=== PATIENT | male | born 1995 | race Caucasian/White ===

== ENCOUNTER 2017-12-19 20:30 | Emergency (ER) | payer SELFPAY ==
[~2017-12-19] VITALS: Ht 188 cm; Wt 80.9 kg
[2017-12-19 20:30] VITALS: TEMP 98.1
[2017-12-19 21:29] LABS: BASO # 0.1 (0.0-0.2); EOS # 0.2 (0.0-0.7); EOS % 2.4 % (0-4.0); GRAN % 57.2 % (42.2-75.2); HEMATOCRIT 44.2 % (42.0-52.0); HEMOGLOBIN 15.7 g/dl (13.5-18.0); LYMPH # 2.5 (1.2-3.4); LYMPH % 28.4 % (20.0-51.0); MEAN CELL VOLUME 90 fl (80.0-100.0); MEAN CORPUSCULAR HEMOGLOBIN 32 pg (27.0-31.0); MEAN CORPUSCULAR HGB CONC 36 g/dl (33.0-37.0); MEAN PLATELET VOLUME 8.8 fl (7.4-10.4); MONO % 10.9 % (1.7-9.3); PLATELET COUNT 215 K/mm3 (130-400); RED BLOOD COUNT 4.94 M/mm3 (4.20-5.60); REDCELL DISTRIBUTION WIDTH-CV 11.9 % (11.5-14.5)
[2017-12-19 21:42] LABS: ALBUMIN 4.4 gm/dL (3.5-5.0); BILIRUBIN,TOTAL 0.8 mg/dL (0.0-1.0); C-REACTIVE PROTEIN 1.2 mg/dL (0.0-0.9); CALCIUM 9.5 mg/dL (8.4-10.2); CREATININE, serum 0.93 mg/dL (0.66-1.25); POTASSIUM 4.4 mmol/L (3.4-5.0)
[2017-12-19 22:10] VITALS: BP 132/74; PULSE 62
== END 2017-12-19 22:10 | disposition home or self-care (01) ==
LOC: COL.ER 20:30
PROVIDERS: Physician Assistant
DX: R06.00 Dyspnea, unspecified (principal); F17.210 Nicotine dependence, cigarettes, uncomplicated

== ENCOUNTER 2018-07-16 10:14 | Emergency (ER) | payer SELFPAY ==
[~2018-07-16] VITALS: Ht 188 cm; Wt 85.0 kg
[2018-07-16 10:20] VITALS: BP 128/70; TEMP 98.2
[2018-07-16] MEDS ORDERED: NORCO 325 MG-51 TAB PO (10:41)
[2018-07-16] MEDS ORDERED: CLEOCIN HCL300 MG PO (10:41)
[2018-07-16 11:43] VITALS: PULSE 76
== END 2018-07-16 11:44 | disposition home or self-care (01) ==
LOC: COL.ER 10:14
DX: K02.9 Dental caries, unspecified (principal)

== ENCOUNTER 2018-08-02 10:12 | Emergency (ER) | payer SELFPAY ==
[~2018-08-02] VITALS: Ht 188 cm; Wt 84.5 kg
[~2018-08-02 10:12] MED LIST: CLEOCIN HCL300 MG PO; NORCO 325 MG-51 TAB PO
[2018-08-02 10:20] VITALS: BP 141/82; TEMP 97.8
[2018-08-02 11:20] LABS: BASO # 0.1 (0.0-0.2); EOS # 0.3 (0.0-0.7); EOS % 3.5 % (0-4.0); GRAN # 4.6 (1.4-6.5); GRAN % 57.8 % (42.2-75.2); HEMATOCRIT 47.3 % (42.0-52.0); HEMOGLOBIN 16.8 g/dl (13.5-18.0); LYMPH # 2.3 (1.2-3.4); LYMPH % 28.5 % (20.0-51.0); MEAN CELL VOLUME 92 fl (80.0-100.0); MEAN CORPUSCULAR HEMOGLOBIN 33 pg (27.0-31.0); MEAN CORPUSCULAR HGB CONC 36 g/dl (33.0-37.0); MEAN PLATELET VOLUME 9.1 fl (7.4-10.4); MONO # 0.7 (0.1-0.6); MONO % 8.9 % (1.7-9.3); PLATELET COUNT 256 K/mm3 (130-400); RED BLOOD COUNT 5.15 M/mm3 (4.20-5.60); REDCELL DISTRIBUTION WIDTH-CV 11.9 % (11.5-14.5)
[2018-08-02 11:23] LABS: ALANINE AMINOTRANSFERASE 18 U/L (21-72); ALBUMIN 4.7 gm/dL (3.5-5.0); ALKALINE PHOSPHATASE 59 U/L (50-136); ANION GAP 5 mmol/L (7-16); AST,SGOT 23 U/L (15-37); BLOOD UREA NITROGEN 15 mg/dL (9-20); CALCIUM 9.9 mg/dL (8.4-10.2); CARBON DIOXIDE 31 mmol/L (22-30); CHLORIDE 102 mmol/L (98-107); CREATININE, serum 0.86 mg/dL (0.66-1.25); GLUCOSE 84 mg/dL (74-106); MAGNESIUM 2.3 mg/dL (1.6-2.3); PHOSPHOROUS 3.7 mg/dL (2.5-4.5); POTASSIUM 4.7 mmol/L (3.4-5.0); SODIUM 138 mmol/L (137-145); TOTAL PROTEIN 7.8 gm/dL (6.4-8.2)
[2018-08-02 11:35] LABS: C-REACTIVE PROTEIN < 0.5 mg/dL (0.0-0.9)
[2018-08-02 11:37] LABS: PROLACTIN 18.7 ng/mL (3.7-17.9)
[2018-08-02 11:38] LABS: ERYTHROCYTE SEDIMENTATION RATE 2 mm/hr (0-15)
[2018-08-02] MEDS ORDERED: CLEOCIN HCL300 MG PO (12:25)
[2018-08-02 12:34] VITALS: PULSE 89
== END 2018-08-02 12:34 | disposition home or self-care (01) ==
LOC: COL.ER 10:12
PROVIDERS: Emergency Medicine
DX: R51 Headache (principal); R55 Syncope and collapse; F17.210 Nicotine dependence, cigarettes, uncomplicated

== ENCOUNTER 2018-11-25 00:36 | Emergency (ER) | payer SELFPAY ==
[~2018-11-25] VITALS: Ht 182.9 cm; Wt 77.3 kg
[2018-11-25] MEDS ORDERED: SEROQUEL 2525 MG/TAB PO (00:46)
[2018-11-25] MEDS ORDERED: DESYREL 50MG50 MG PO (00:47)
[2018-11-25] MEDS ORDERED: APRESOLINE 10MG10 MG PO (00:47)
[2018-11-25 01:25] LABS: COLLECTION METHOD CLEAN CATCH
[2018-11-25 01:34] LABS: PH 5 (5-8); SQUAMOUS EPITHELIAL None Seen /hpf; URINE APPEARANCE Clear; URINE BACTERIA None Seen /hpf; URINE BILIRUBIN Negative (NEGATIVE); URINE BLOOD 1+ (NEGATIVE); URINE COLOR Yellow; URINE GLUCOSE Negative (NEGATIVE); URINE KETONE Negative (NEGATIVE); URINE LEUKOCYTE ESTERASE Negative (NEGATIVE); URINE NITRATE Negative (NEGATIVE); URINE PROTEIN(semi-quant) Negative (NEGATIVE); URINE RBC 0-2 /hpf; URINE UROBILINOGEN Negative (NEGATIVE)
[2018-11-25 01:44] LABS: BASO # 0.1 (0.0-0.2); BASO % 1.1 % (0.0-2.0); EOS # 0.3 (0.0-0.7); EOS % 2.6 % (0-4.0); GRAN # 6.1 (1.4-6.5); HEMATOCRIT 42.8 % (42.0-52.0); HEMOGLOBIN 15.1 g/dl (13.5-18.0); LYMPH % 20.7 % (20.0-51.0); MEAN CELL VOLUME 92 fl (80.0-100.0); MEAN CORPUSCULAR HEMOGLOBIN 32 pg (27.0-31.0); MEAN CORPUSCULAR HGB CONC 35 g/dl (33.0-37.0); MEAN PLATELET VOLUME 8.6 fl (7.4-10.4); MONO # 1.2 (0.1-0.6); MONO % 12.3 % (1.7-9.3); PLATELET COUNT 220 K/mm3 (130-400); RED BLOOD COUNT 4.66 M/mm3 (4.20-5.60); REDCELL DISTRIBUTION WIDTH-CV 12.1 % (11.5-14.5)
[2018-11-25 01:57] LABS: TRICYCLIC ANTIDEPRESS URINE POSITIVE
[2018-11-25 02:05] LABS: ALANINE AMINOTRANSFERASE 17 U/L (21-72); ALBUMIN 4.5 gm/dL (3.5-5.0); ALKALINE PHOSPHATASE 97 U/L (50-136); ANION GAP 13 mmol/L (7-16); AST,SGOT 35 U/L (15-37); BILIRUBIN,TOTAL 0.4 mg/dL (0.0-1.0); BLOOD UREA NITROGEN 18 mg/dL (9-20); CALCIUM 9.6 mg/dL (8.4-10.2); CARBON DIOXIDE 26 mmol/L (22-30); CHLORIDE 102 mmol/L (98-107); CREATININE, serum 0.76 (0.66-1.25); GLUCOSE 160 mg/dL (74-106); POTASSIUM 3.8 mmol/L (3.4-5.0); SODIUM 141 mmol/L (137-145); TOTAL PROTEIN 7.6 gm/dL (6.4-8.2)
[2018-11-25 02:07] LABS: ACETAMINOPHEN < 10 ug/mL (10-30); ALCOHOL(ethanol),MEDICAL < 10 mg/dL; SALICYLATE < 1.0 mg/dL
[2018-11-26 15:11] VITALS: BP 145/86; PULSE 95; TEMP 98.1
== END 2018-11-26 15:13 ==
LOC: COL.ER 00:36
PROVIDERS: Emergency Medicine
DX: R45.850 Homicidal ideations (principal); F99 Mental disorder, not otherwise specified; Z88.6 Allergy status to analgesic agent; Z91.5 Personal history of self-harm

== ENCOUNTER 2019-11-02 19:44 | Emergency (ER) | payer SELFPAY ==
[~2019-11-02] VITALS: Ht 7.6 cm; Wt 81.1 kg
[~2019-11-02 19:44] MED LIST changes: +APRESOLINE 10MG10 MG PO; +DESYREL 50MG50 MG PO; +SEROQUEL 2525 MG/TAB PO
[2019-11-02 19:49] VITALS: TEMP 97
[2019-11-02 20:13] VITALS: BP 133/91; PULSE 89
== END 2019-11-02 20:13 | disposition home or self-care (01) ==
LOC: COL.ER 19:44
DX: R21 Rash and other nonspecific skin eruption (principal); F17.210 Nicotine dependence, cigarettes, uncomplicated; Z88.6 Allergy status to analgesic agent

== ENCOUNTER 2020-01-09 18:51 | Emergency (ER) | payer SELFPAY ==
[~2020-01-09] VITALS: Ht 190.5 cm; Wt 82.7 kg
[2020-01-09 19:00] VITALS: BP 135/95; TEMP 97.8
[2020-01-09 21:32] VITALS: PULSE 60
== END 2020-01-09 21:32 | disposition home or self-care (01) ==
LOC: COL.ER 18:51
DX: M54.5 Low back pain (principal); M25.60 Stiffness of unspecified joint, not elsewhere classified; F17.210 Nicotine dependence, cigarettes, uncomplicated
CPT/HCPCS: J1200; J1885; J7030

== ENCOUNTER 2020-02-24 09:03 | Outpatient (RCR) | payer SELFPAY | END 2020-03-17 14:45 | disposition home or self-care (01) | LOC: WSC 09:03 | DX: S84.90XA Injury of unspecified nerve at lower leg level, unspecified leg, initial encounter (principal); M25.60 Stiffness of unspecified joint, not elsewhere classified ==

== ENCOUNTER 2020-08-21 18:45 | Emergency (ER) | payer SELFPAY ==
[~2020-08-21] VITALS: Ht 190.5 cm; Wt 79.1 kg
[2020-08-21 20:20] LABS: CALCIUM 9.4 mg/dL (8.4-10.2); CREATININE, serum 0.73 (0.66-1.25); MAGNESIUM 2.1 mg/dL (1.6-2.3); POTASSIUM 4.2 mmol/L (3.4-5.0)
[2020-08-21 20:52] VITALS: BP 136/74; PULSE 63; TEMP 97.9
== END 2020-08-21 20:49 | disposition home or self-care (01) ==
LOC: COL.ER 18:45
PROVIDERS: Emergency Medicine
DX: R53.83 Other fatigue (principal); Z20.822 Contact with and (suspected) exposure to COVID-19; Z88.8 Allergy status to other drugs, medicaments and biological substances

== ENCOUNTER 2020-11-20 14:32 | Emergency (ER) | payer SELFPAY ==
[~2020-11-20] VITALS: Ht 190.5 cm; Wt 79.1 kg
[2020-11-20 14:38] VITALS: TEMP 98.1
[2020-11-20] MEDS ORDERED: AMOXICILLIN 8751 TAB PO (14:41)
[2020-11-20 15:16] VITALS: BP 158/76; PULSE 72
== END 2020-11-20 15:15 | disposition home or self-care (01) ==
LOC: COL.ER 14:32
DX: S51.852A Open bite of left forearm, initial encounter (principal); Z88.8 Allergy status to other drugs, medicaments and biological substances; W54.0XXA Bitten by dog, initial encounter

== ENCOUNTER 2021-04-05 10:10 | Emergency (ER) | payer SELFPAY ==
[~2021-04-05] VITALS: Ht 190.5 cm; Wt 90.0 kg
[~2021-04-05 10:10] MED LIST changes: +AMOXICILLIN 8751 TAB PO
[2021-04-05 11:22] VITALS: BP 127/79; PULSE 74; TEMP 98.3
[2021-04-05 13:02] LABS: BASO # 0.1 (0.0-0.2); EOS # 0.2 (0.0-0.7); EOS % 1.6 % (0-4.0); GRAN # 6.6 (1.4-6.5); HEMATOCRIT 44.8 % (42.0-52.0); HEMOGLOBIN 15.7 g/dl (13.5-18.0); LYMPH # 1.9 (1.2-3.4); LYMPH % 20.6 % (20.0-51.0); MEAN CELL VOLUME 91 fl (80.0-100.0); MEAN CORPUSCULAR HEMOGLOBIN 32 pg (27.0-31.0); MEAN CORPUSCULAR HGB CONC 35 g/dl (33.0-37.0); MEAN PLATELET VOLUME 9.2 fl (7.4-10.4); MONO # 0.5 (0.1-0.6); MONO % 5.5 % (1.7-9.3); PLATELET COUNT 254 K/mm3 (130-400); RED BLOOD COUNT 4.92 M/mm3 (4.20-5.60); REDCELL DISTRIBUTION WIDTH-CV 12.4 % (11.5-14.5)
[2021-04-05 13:15] LABS: ALBUMIN 4.6 gm/dL (3.5-5.0); ALKALINE PHOSPHATASE 95 U/L (50-136); ANION GAP 12 mmol/L (7-16); AST,SGOT 25 U/L (15-37); BILIRUBIN,TOTAL 0.6 mg/dL (0.0-1.0); BLOOD UREA NITROGEN 19 mg/dL (9-20); CALCIUM 8.8 mg/dL (8.4-10.2); CARBON DIOXIDE 22 mmol/L (22-30); CHLORIDE 103 mmol/L (98-107); CREATININE, serum 0.77 (0.66-1.25); GLUCOSE 127 mg/dL (74-106); POTASSIUM 4.2 mmol/L (3.4-5.0); SODIUM 137 mmol/L (137-145); TOTAL PROTEIN 7.6 gm/dL (6.4-8.2)
[2021-04-05 13:30] LABS: C-REACTIVE PROTEIN < 0.5 mg/dL (0.0-0.9)
[2021-04-05 14:00] LABS: ALANINE AMINOTRANSFERASE 25 U/L (4-49)
== END 2021-04-05 13:05 | disposition home or self-care (01) ==
LOC: COL.ER 10:10
PROVIDERS: Emergency Medicine
DX: R19.7 Diarrhea, unspecified (principal); F17.210 Nicotine dependence, cigarettes, uncomplicated; Z20.822 Contact with and (suspected) exposure to COVID-19

== ENCOUNTER 2021-06-09 19:32 | Emergency (ER) | payer OTHER ==
[~2021-06-09] VITALS: Ht 190.5 cm; Wt 91.8 kg
[2021-06-09 19:58] VITALS: TEMP 97.5
[2021-06-09] MEDS ORDERED: NAPROSYN500 MG PO (21:23)
[2021-06-09] MEDS ORDERED: PEN-VEE K500 MG PO (21:23)
[2021-06-09 21:34] VITALS: BP 128/80; PULSE 86
== END 2021-06-09 21:34 | disposition home or self-care (01) ==
LOC: COL.ER 19:32
DX: K08.89 Other specified disorders of teeth and supporting structures (principal)

== ENCOUNTER 2021-06-21 08:31 | Emergency (ER) | payer OTHER ==
[~2021-06-21] VITALS: Ht 190.5 cm; Wt 91.8 kg
[~2021-06-21 08:31] MED LIST changes: +NAPROSYN500 MG PO; +PEN-VEE K500 MG PO
[2021-06-21 09:07] LABS: BASO # 0.1 K/mm3 (0.0-0.2); EOS # 0.2 K/mm3 (0.0-0.7); EOS % 1.9 % (0-4.0); GRAN # 6.8 K/mm3 (1.4-6.5); GRAN % 65.6 % (42.2-75.2); HEMATOCRIT 42.7 % (42.0-52.0); HEMOGLOBIN 14.6 g/dl (13.5-18.0); LYMPH # 2.3 K/mm3 (1.2-3.4); LYMPH % 22.3 % (20.0-51.0); MEAN CELL VOLUME 92 fl (80.0-100.0); MEAN CORPUSCULAR HEMOGLOBIN 32 pg (27.0-31.0); MEAN CORPUSCULAR HGB CONC 34 g/dl (33.0-37.0); MEAN PLATELET VOLUME 8.6 fl (7.4-10.4); MONO # 0.9 K/mm3 (0.1-0.6); MONO % 8.6 % (1.7-9.3); PLATELET COUNT 296 K/mm3 (130-400); RED BLOOD COUNT 4.62 M/mm3 (4.20-5.60)
[2021-06-21 09:27] LABS: ALANINE AMINOTRANSFERASE 26 U/L (0-55); ALBUMIN 4.1 gm/dL (3.5-5.0); ALKALINE PHOSPHATASE 106 U/L (40-150); ANION GAP 10 mmol/L (7-16); AST,SGOT 22 U/L (5-34); BILIRUBIN,TOTAL 0.5 mg/dL (0.2-1.2); BLOOD UREA NITROGEN 9 mg/dL (9-21); CALCIUM 9.2 mg/dL (8.4-10.2); CARBON DIOXIDE 25 mmol/L (22-29); CHLORIDE 107 mmol/L (98-107); CREATININE, serum 0.93 mg/dL (0.72-1.25); GLUCOSE 104 mg/dL (70-99); POTASSIUM 4.1 mmol/L (3.5-4.5); SODIUM 142 mmol/L (136-145); TOTAL PROTEIN 7.4 gm/dL (6.2-8.1)
[2021-06-21 09:28] LABS: ACETAMINOPHEN < 1.0 ug/mL (10-30); ALCOHOL(ethanol),MEDICAL < 10 mg/dL (0-10); SALICYLATE < 5.0 mg/dL (15.0-30.0)
[2021-06-21 09:40] LABS: TRICYCLIC ANTIDEPRESS URINE NEGATIVE
[2021-06-21 09:47] LABS: TSH w REFLEX 2.635 uIU/mL (0.350-4.940)
[2021-06-22 16:41] VITALS: BP 146/81; PULSE 92; TEMP 98.5
== END 2021-06-22 16:43 ==
LOC: COL.ER 08:31
PROVIDERS: Personal Emergency Response Attendant
DX: F23 Brief psychotic disorder (principal); Z20.822 Contact with and (suspected) exposure to COVID-19
CPT/HCPCS: J1200; J1630; J2060

== ENCOUNTER 2021-11-02 08:11 | Emergency (ER) | payer SELFPAY ==
[~2021-11-02] VITALS: Ht 190.5 cm; Wt 101.4 kg
[2021-11-02 08:49] VITALS: TEMP 97.7
[2021-11-02] MEDS ORDERED: TRIAMCINOLONE A15 G3 TP (10:45)
[2021-11-02] MEDS ORDERED: POLYMYXIN B/TRIMETH OD (10:46)
[2021-11-02 10:58] VITALS: BP 155/83; PULSE 65
== END 2021-11-02 10:58 | disposition home or self-care (01) ==
LOC: COL.ER 08:11
DX: L25.9 Unspecified contact dermatitis, unspecified cause (principal)

== ENCOUNTER 2021-12-03 20:21 | Emergency (ER) | payer SELFPAY ==
[~2021-12-03] VITALS: Ht 190.5 cm; Wt 103.2 kg
[~2021-12-03 20:21] MED LIST changes: +POLYMYXIN B/TRIMETH OD; +TRIAMCINOLONE A15 G3 TP
[2021-12-03 20:43] VITALS: TEMP 98
[2021-12-03 23:48] VITALS: BP 148/91; PULSE 78
== END 2021-12-04 00:06 | disposition home or self-care (01) ==
LOC: COL.ER 20:21
DX: L55.1 Sunburn of second degree (principal); Z28.310 Unvaccinated for COVID-19

== ENCOUNTER 2021-12-11 14:06 | Emergency (ER) | payer SELFPAY ==
[~2021-12-11] VITALS: Ht 190.5 cm; Wt 103.2 kg
[2021-12-11 14:12] VITALS: TEMP 98.4
[2021-12-11 14:49] LABS: BASO # 0.1 K/mm3 (0.0-0.2); EOS # 0.1 K/mm3 (0.0-0.7); EOS % 0.7 % (0.0-4.0); GRAN % 71.8 % (42.2-75.2); HEMATOCRIT 43.4 % (42.0-52.0); LYMPH # 1.5 K/mm3 (1.2-3.4); LYMPH % 17.4 % (20.0-51.0); MEAN CELL VOLUME 89 fl (80.0-100.0); MEAN CORPUSCULAR HEMOGLOBIN 31 pg (27-31); MEAN CORPUSCULAR HGB CONC 35 g/dl (33.0-37.0); MEAN PLATELET VOLUME 8.9 fl (7.4-10.4); MONO # 0.7 K/mm3 (0.1-0.6); MONO % 8.7 % (1.7-9.3); PLATELET COUNT 295 K/mm3 (130-400); RED BLOOD COUNT 4.87 M/mm3 (4.20-5.60); REDCELL DISTRIBUTION WIDTH-CV 12.9 % (11.5-14.5)
[2021-12-11 15:18] LABS: ALBUMIN 4.1 gm/dL (3.5-5.0); BILIRUBIN,TOTAL 0.7 mg/dL (0.2-1.2); CREATININE, serum 0.91 mg/dL (0.72-1.25); POTASSIUM 4.3 mmol/L (3.5-4.5); TOTAL PROTEIN 7.6 gm/dL (6.2-8.1)
[2021-12-11 16:00] VITALS: BP 138/89; PULSE 81
[2021-12-11] MEDS ORDERED: CEPHALEXIN500 M1 PO (16:16)
== END 2021-12-11 16:28 | disposition home or self-care (01) ==
LOC: COL.ER 14:06
PROVIDERS: Nurse Practitioner
DX: S11.91XA Laceration without foreign body of unspecified part of neck, initial encounter (principal); Z28.310 Unvaccinated for COVID-19; W26.0XXA Contact with knife, initial encounter
CPT/HCPCS: J0690; J3010; J7030; Q9967

== ENCOUNTER 2021-12-16 20:08 | Emergency (ER) | payer SELFPAY ==
[~2021-12-16] VITALS: Ht 190.5 cm; Wt 101.8 kg
[~2021-12-16 20:08] MED LIST changes: +CEPHALEXIN500 M1 PO
[2021-12-16 20:17] VITALS: BP 138/85; TEMP 98.1
[2021-12-16] MEDS ORDERED: FLEXERIL 1010 MG/TAB PO (20:47)
[2021-12-16 21:00] VITALS: PULSE 81
== END 2021-12-16 21:00 | disposition home or self-care (01) ==
LOC: COL.ER 20:08
DX: S92.424A Nondisplaced fracture of distal phalanx of right great toe, initial encounter for closed fracture (principal); F17.210 Nicotine dependence, cigarettes, uncomplicated; Z28.310 Unvaccinated for COVID-19; W20.8XXA Other cause of strike by thrown, projected or falling object, initial encounter

== ENCOUNTER 2022-05-19 03:55 | Emergency (ER) | payer SELFPAY ==
[~2022-05-19] VITALS: Ht 193 cm; Wt 93.6 kg
[~2022-05-19 03:55] MED LIST changes: +FLEXERIL 1010 MG/TAB PO
[2022-05-19 05:00] VITALS: BP 144/78; PULSE 76
== END 2022-05-19 05:00 ==
LOC: COL.ER 03:55
DX: S52.501A Unspecified fracture of the lower end of right radius, initial encounter for closed fracture (principal); M25.521 Pain in right elbow; Z28.310 Unvaccinated for COVID-19; Z87.891 Personal history of nicotine dependence; Z88.6 Allergy status to analgesic agent; W08.XXXA Fall from other furniture, initial encounter